=== PATIENT | male | born 1965 | race Caucasian/White ===

== ENCOUNTER 2017-05-10 16:35 | Emergency (ER) | payer OTHER ==
[~2017-05-10] VITALS: Ht 188 cm; Wt 117.4 kg
[2017-05-10 17:28] LABS: HEMATOCRIT 48.7 % (39.2-51.8); HEMOGLOBIN 16.5 g/dL (13.7-18.0); WHITE BLOOD COUNT 6.1 x10^3/uL (3.4-10)
[2017-05-10 17:44] LABS: ASPARTATE AMINO TRANSFERASE 20 U/L (15-37); BLOOD UREA NITROGEN 16 mg/dL (7-18)
[2017-05-10] MEDS ORDERED: SODIUM CHLORIDE FLUSH 10ML SYR IVF ONE (18:00)
[2017-05-10] MEDS ORDERED: MAALOX/HYOSCYAMINE/LIDOCAINE 45 ML BTL PO ONE (18:00)
[2017-05-10] MEDS ORDERED: MAALOX/HYOSCYAMINE/LIDOCAINE 45 ML BTL ONE (18:05)
[2017-05-10] MEDS ORDERED: OMNIPAQUE 350 MG/ML, 100ML BOTTLE ONE (18:32)
[2017-05-10 18:37] LABS: IS PT STATUS REG ER OR PRE ER? YES
[2017-05-10 19:34] VITALS: BP 137/89
== END 2017-05-10 19:37 | disposition home or self-care (01) ==
LOC: ED 18:27
DX: R10.32 Left lower quadrant pain (principal)
CPT/HCPCS: 36415; 74177; 80053; 81003; 83690; 84484; 85025; 93005; 99285; Q9967